=== PATIENT | male | born 1970 | race Caucasian/White ===

== ENCOUNTER → 2017-11-03 | Outpatient (CLI) | payer OTHER ==
--- NOTE | 2017-11-03 15:40 | DIAGNOSTIC IMAGING REPORT ---
L LOWER EXTREMITY WITHOUT CT DOSE: 328.93 mGy.cm HISTORY: Pain LT FOOT PAIN TECHNIQUE: Multiaxial CT images of the left foot were performed and reformatted in the sagittal and coronal plane without the use of contrast. A dose lowering technique was utilized adhering to the principles of ALARA. COMPARISON: None. FINDINGS: Osseous structures show bone mineralization to be within normal limits. Ankle mortise is aligned anatomically. The subtalar joint is intact. There is no evidence for tarsal collection. There are several small ossific fragments adjacent to the anterior superior aspect of the calcaneus. Age is uncertain. There is minimal ossification Achilles tendon insertion. There is no significant heel spur. All remaining osseous structures show unremarkable density characteristics. There is a small dorsal osteophyte distal aspect first metatarsal. Articular services appear to be intact with only minimal degenerative change. Area of the intertarsal region is considered unremarkable. There are minimal medial osteophytic changes involving the distal aspect first metatarsal. There are no lytic or blastic lesions. IMPRESSION: 1. Minimal osteophytic formation at the Achilles tendon insertion. 2. Several small ossific fragments adjacent to the anterior lateral aspect of the calcaneus. These potentially are posttraumatic best seen sagittal image 72. 3. Minimal degenerative change first metatarsophalangeal joint with small reactive osteophytic change noted medially. 4. All remaining osseous structures are unremarkable. The above report was generated using voice recognition software. It may contain grammatical, syntax or spelling errors. Electronically signed by: Rodger Severino M.D. 11/03/2017 3:38 PM Dictated Date/Time: 11/03/2017 3:33 PM
== END | disposition home or self-care (01) ==
LOC: C.CTS 15:06
PROVIDERS: ATTEND Orthopaedic Surgery Sports Medicine
DX: M25.772 Osteophyte, left ankle (principal)